=== PATIENT | female | born 1985 | race Caucasian/White ===

== ENCOUNTER 2019-01-06 13:14 | Inpatient (IN) | payer MEDICAID ==
[2019-01-06] MEDS ORDERED: METHYLERGONOVINE 0.2 MG INJ IM (21:00)
[2019-01-06] MEDS ORDERED: OXYTOCIN 30 UNITS/LR 500 ML IV ×3 (21:00)
[2019-01-06] MEDS ORDERED: LIDOCAINE 1% (MPF) 30 ML INJ INJ (21:00)
[2019-01-06] MEDS ORDERED: MISOPROSTOL 200 MCG TAB PR (21:00)
[2019-01-06] MEDS ORDERED: IBUPROFEN 600 MG TAB PO (21:00)
[2019-01-06] MEDS ORDERED: CARBOPROST 250 MCG INJ IM (21:00)
[2019-01-06] MEDS ORDERED: BUTORPHANOL 2 MG INJ IV (21:00)
[2019-01-06 21:16] LABS: ADD MAN DIFF? NO
[2019-01-06 21:18] LABS: WHITE BLOOD COUNT 13.8 10^3/ul (4.8-10.8)
[2019-01-06 21:18] LABS: BASOPHIL # 0.1 10^3/ul (0.0-0.1); BASOPHILS % 0.4 % (0.0-2.0); EOSINOPHILS # 0.2 10^3/ul (0.0-0.5); EOSINOPHILS % 1.1 % (0.0-7.0); HEMATOCRIT 39.8 % (37.0-47.0); HEMOGLOBIN 13.4 g/dl (12.0-16.0); LYMPHOCYTES # 1.8 10^3/ul (0.8-2.9); LYMPHOCYTES % 13.2 % (15.0-51.0); MEAN CORPUSCULAR HEMOGLOBIN 30.6 pg (29.0-33.0); MEAN CORPUSCULAR HGB CONC 33.7 g/dl (32.0-37.0); MEAN CORPUSCULAR VOLUME 90.9 fl (82.0-101.0); MEAN PLATELET VOLUME 9.4 fl (7.4-10.4); MONOCYTE # 0.8 10^3/ul (0.3-0.9); MONOCYTES % 5.4 % (0.0-11.0); NEUTROPHILS % 79.4 % (39.0-77.0); PLATELET COUNT 289 10^3/UL (140-415); RED BLOOD COUNT 4.38 10^6/ul (4.20-5.40); RED CELL DISTRIBUTION WIDTH 12.9 % (11.5-14.5)
[2019-01-06] MEDS: LACTATED RINGER'S 1,000 ML IV (21:23)
[2019-01-06 21:38] LABS: INR 0.91; PARTIAL THROMBOPLASTIN TIME 24.1 Sec (23.0-35.0); PROTIME 12.4 Sec (11.9-14.9)
[2019-01-06] MEDS: OXYTOCIN 30 UNITS/LR 500 ML IV (21:54)
[2019-01-07] MEDS: LACTATED RINGER'S 1,000 ML IV ×2 (03:19→11:08)
[2019-01-07] MEDS: AZITHROMYCIN 500MG/NS (PMX) 250 ML IVPB (07:00)
[2019-01-07] MEDS: MINERAL OIL LIGHT 10 ML VIAL TOP (07:00)
[2019-01-07] MEDS ORDERED: NALOXONE (0.4 MG/ML) INJ IV (13:00)
[2019-01-07] MEDS ORDERED: DIPHENHYDRAMINE 50 MG INJ IV (13:00)
[2019-01-07] MEDS ORDERED: ONDANSETRON 4 MG INJ IV ×2 (13:00→23:00)
[2019-01-07 15:08] LABS: RAPID PLASMA REAGIN NONREACTIVE (NR)
[2019-01-07] MEDS ORDERED: DEXTROSE 5%-LR 1,000 ML IV (17:00)
[2019-01-07] MEDS: FENTAnyl 2MCG/ML-ROPIV 0.2% 100 ML BAG EPI (18:37)
[2019-01-07] MEDS ORDERED: KETOROLAC 30 MG INJ (19:40)
[2019-01-07] MEDS ORDERED: METOCLOPRAMIDE 10 MG INJ (19:40)
[2019-01-07] MEDS ORDERED: morphine SULFATE/PF (10 MG/10 ML) INJ (19:41)
[2019-01-07] MEDS ORDERED: CEFAZOLIN 2 GM/50 ML (PMX) 50 ML IVPB (20:00)
[2019-01-07] MEDS ORDERED: OXYTOCIN 30 UNITS/LR 500 ML IV ×2 (20:42→23:00)
[2019-01-07] MEDS ORDERED: MISOPROSTOL 200 MCG TAB PR (23:00)
[2019-01-07] MEDS ORDERED: BISACODYL 10 MG SUPP PR (23:00)
[2019-01-07] MEDS ORDERED: CARBOPROST 250 MCG INJ IM (23:00)
[2019-01-07] MEDS ORDERED: ACETAMINOPHEN 325 MG TAB PO (23:00)
[2019-01-07] MEDS ORDERED: METHYLERGONOVINE 0.2 MG INJ IM (23:00)
[2019-01-08] MEDS: CEFAZOLIN 1 GM/50 ML (PMX) 50 ML IVPB ×3 (00:29→14:48)
[2019-01-08] MEDS: OXYTOCIN 30 UNITS/LR 500 ML IV (00:29)
[2019-01-08] MEDS ORDERED: morphine 2 MG INJ IV ×3 (00:30)
[2019-01-08] MEDS ORDERED: DIPHENHYDRAMINE 50 MG INJ IV (00:30)
[2019-01-08] MEDS ORDERED: ONDANSETRON 4 MG INJ IV (00:30)
[2019-01-08] MEDS ORDERED: NALOXONE (0.4 MG/ML) INJ IV (00:30)
[2019-01-08 06:57] LABS: ADD MAN DIFF? NO
[2019-01-08 07:05] LABS: WHITE BLOOD COUNT 17.1 10^3/ul (4.8-10.8)
[2019-01-08 07:05] LABS: BASOPHILS % 0.2 % (0.0-2.0); EOSINOPHILS % 0.1 % (0.0-7.0); HEMOGLOBIN 10.8 g/dl (12.0-16.0); LYMPHOCYTES # 1.3 10^3/ul (0.8-2.9); LYMPHOCYTES % 7.4 % (15.0-51.0); MEAN CORPUSCULAR HEMOGLOBIN 30.9 pg (29.0-33.0); MEAN CORPUSCULAR HGB CONC 33.8 g/dl (32.0-37.0); MEAN CORPUSCULAR VOLUME 91.7 fl (82.0-101.0); MEAN PLATELET VOLUME 9.7 fl (7.4-10.4); MONOCYTE # 0.9 10^3/ul (0.3-0.9); MONOCYTES % 5.3 % (0.0-11.0); NEUTROPHIL # 14.8 10^3/ul (1.6-7.5); NEUTROPHILS % 86.6 % (39.0-77.0); PLATELET COUNT 255 10^3/UL (140-415); RED BLOOD COUNT 3.49 10^6/ul (4.20-5.40); RED CELL DISTRIBUTION WIDTH 13.1 % (11.5-14.5)
[2019-01-08 07:37] LABS: ALANINE AMINOTRANSFERASE 19 IU/L (13-69); ALBUMIN 2.5 g/dl (3.3-4.9); ALBUMIN/GLOBULIN RATIO 0.83; ALKALINE PHOSPHATASE 112 IU/L (42-121); ANION GAP 6 (5-13); ASPARTATE AMINO TRANSFERASE 40 IU/L (15-46); BILIRUBIN,INDIRECT 1.2 mg/dl (0-1.1); BILIRUBIN,TOTAL 1.2 mg/dl (0.2-1.3); BLOOD UREA NITROGEN 9 mg/dl (7-20); CALCIUM 8.2 mg/dl (8.4-10.2); CARBON DIOXIDE 23 mmol/L (21-31); CHLORIDE 105 mmol/L (97-110); CREATININE 0.58 mg/dl (0.44-1.00); Estimated GFR > 60 mL/min (>60); GLUCOSE 106 mg/dl (70-220); POTASSIUM 3.8 mmol/L (3.5-5.1); SODIUM 134 mmol/L (135-144); TOTAL PROTEIN 5.5 g/dl (6.1-8.1)
[2019-01-08] MEDS: KETOROLAC 30 MG INJ IV ×2 (08:15→14:48)
[2019-01-08] MEDS: SENNA/DOCUSATE NA (8.6MG/50MG) TAB PO (13:21)
[2019-01-08] MEDS: LACTATED RINGER'S 1,000 ML IV (13:21)
[2019-01-08] MEDS ORDERED: OXYCODONE/ACETAMINOPHEN (5/325) TAB PO ×2 (19:42)
[2019-01-09] MEDS: IBUPROFEN 600 MG TAB PO ×3 (00:40→23:26)
[2019-01-09 06:35] LABS: ADD MAN DIFF? NO
[2019-01-09 06:43] LABS: BASOPHIL # 0.1 10^3/ul (0.0-0.1); BASOPHILS % 0.4 % (0.0-2.0); EOSINOPHILS # 0.1 10^3/ul (0.0-0.5); EOSINOPHILS % 0.7 % (0.0-7.0); HEMATOCRIT 32.5 % (37.0-47.0); HEMOGLOBIN 10.8 g/dl (12.0-16.0); LYMPHOCYTES # 1.5 10^3/ul (0.8-2.9); LYMPHOCYTES % 11.6 % (15.0-51.0); MEAN CORPUSCULAR HEMOGLOBIN 31.1 pg (29.0-33.0); MEAN CORPUSCULAR HGB CONC 33.2 g/dl (32.0-37.0); MEAN CORPUSCULAR VOLUME 93.7 fl (82.0-101.0); MEAN PLATELET VOLUME 9.5 fl (7.4-10.4); MONOCYTE # 0.7 10^3/ul (0.3-0.9); MONOCYTES % 5.6 % (0.0-11.0); NEUTROPHIL # 10.6 10^3/ul (1.6-7.5); NEUTROPHILS % 81.1 % (39.0-77.0); PLATELET COUNT 255 10^3/UL (140-415); RED BLOOD COUNT 3.47 10^6/ul (4.20-5.40); RED CELL DISTRIBUTION WIDTH 13.3 % (11.5-14.5)
[2019-01-09] MEDS: MAGNESIUM HYDROXIDE 30ML CUP PO (18:47)
[2019-01-10] MEDS: IBUPROFEN 600 MG TAB PO ×2 (08:45→14:22)
[2019-01-10] MEDS: SENNA/DOCUSATE NA (8.6MG/50MG) TAB PO (08:45)
[2019-01-10] MEDS: LANOLIN HPA 1 PKT TOP (08:45)
== END 2019-01-10 15:10 | disposition home or self-care (01) | DRG 788 ==
LOC: OBT 13:14 → L-D 13:16 → PP1 01-07 23:39 → OBT 15:05 → L-D 15:24
PROVIDERS: Obstetrics & Gynecology
PROC: 10D00Z1 Extraction of Products of Conception, Low, Open Approach (ICD-10-PCS; principal; 2019-01-07)
PROC: 3E033VJ Introduction of Other Hormone into Peripheral Vein, Percutaneous Approach (ICD-10-PCS; 2019-01-07)
DX: O76 Abnormality in fetal heart rate and rhythm complicating labor and delivery (principal); O62.1 Secondary uterine inertia; Z3A.39 39 weeks gestation of pregnancy; Z37.0 Single live birth
CPT/HCPCS: 62322; 76815; 76818; 80053; 85025; 85610; 85730; 86592; 86850; 86900; 86901; 99464

== ENCOUNTER 2019-01-27 21:07 | Emergency (ER) | payer MEDICAID ==
[2019-01-27 21:52] LABS: URINE PH (Dip) POC 6.5 (5.0-8.5)
[2019-01-27 21:52] LABS: URINE BLOOD (Dip) POC 3+ (NEGATIVE); URINE GLUCOSE (Dip) POC Negative (NEGATIVE); URINE KETONES (Dip) POC Negative (NEGATIVE); URINE LEUKOCYTE EST (Dip) POC 1+ (NEGATIVE); URINE NITRITE (Dip) POC Negative (NEGATIVE); URINE TOTAL PROTEIN POC 2+ (NEGATIVE)
== END 2019-01-27 22:12 | disposition home or self-care (01) ==
LOC: FTE 21:07
DX: O86.22 Infection of bladder following delivery (principal); B96.89 Other specified bacterial agents as the cause of diseases classified elsewhere
CPT/HCPCS: 81003; 81025; 99283